=== PATIENT | male | born 1975 ===

== ENCOUNTER 2020-03-14 07:30 | Inpatient (IN) | payer OTHER ==
[~2020-03-14 07:30] MED LIST: CEFAZOLIN 2 GM/D5W RTU 2 GM/50 ML RTUPB IV ONE; CEFAZOLIN 2 GM/D5W RTU 2 GM/50 ML RTUPB IV PRN
--- NOTE | 2020-03-14 08:17 | RADIOLOGY REPORT (SQ) ---
EXAM DESCRIPTION: CHEST SINGLE VIEW IMAGES COMPLETED DATE/TIME: 03/14/2020 7:51 am REASON FOR STUDY: preop COMPARISON: None. EXAM PARAMETERS: NUMBER OF VIEWS: One view. TECHNIQUE: Single frontal radiographic view of the chest acquired. RADIATION DOSE: NA LIMITATIONS: None. FINDINGS: LUNGS AND PLEURA: No opacities, masses or pneumothorax. No pleural effusion. MEDIASTINUM AND HILAR STRUCTURES: No masses. Contour normal. HEART AND VASCULAR STRUCTURES: Heart normal in size. Normal vasculature. BONES: No acute findings. HARDWARE: None in the chest. OTHER: No other significant finding. IMPRESSION: NO ACUTE RADIOGRAPHIC FINDING IN THE CHEST. TECHNICAL DOCUMENTATION: JOB ID: [id number] 2010 [employer]- All Rights Reserved Reading location - IP/workstation name: [email or web address]
[2020-03-14 08:25] LABS: APPEARANCE,URINE SLIGHTLY-CLOUDY; BILIRUBIN,URINE NEGATIVE (NEGATIVE); COLOR,URINE YELLOW; GLUCOSE, URINE NEGATIVE (NEGATIVE); KETONES,URINE NEGATIVE (NEGATIVE); LEUKOCYTE ESTERASE,URINE NEGATIVE (NEGATIVE); NITRITE,URINE NEGATIVE (NEGATIVE); PROTEIN,URINE NEGATIVE (NEGATIVE); URINE SPECIFIC GRAVITY 1.021; UROBILINOGEN,URINE NEGATIVE mg/dL (<2.0)
[2020-03-14 08:34] LABS: URINE AMPHETAMINES SCREEN NEGATIVE; URINE BARBITURATES SCREEN NEGATIVE; URINE BENZODIAZEPINES SCREEN NEGATIVE; URINE COCAINE SCREEN NEGATIVE; URINE MARIJUANA (THC) SCREEN NEGATIVE; URINE METHADONE SCREEN NEGATIVE; URINE PHENCYCLIDINE SCREEN NEGATIVE
[2020-03-14] MEDS ORDERED: SUCCINYLCHOLINE CHLORIDE INJ 200 MG/10 ML VIAL ONE (08:34)
[2020-03-14] MEDS ORDERED: METOCLOPRAMIDE HCL INJ/PF 10 MG/2 ML SDV ONE (08:34)
[2020-03-14] MEDS ORDERED: DEXAMETHASONE SOD PHOSPHATE INJ 4 MG/1 ML VIAL ONE (08:34)
[2020-03-14] MEDS ORDERED: ONDANSETRON HCL INJ/PF 4 MG/2 ML SDV ONE (08:34)
[2020-03-14] MEDS ORDERED: ROCURONIUM BROMIDE INJ 50 MG/5 ML VIAL IV ONE (08:34)
[2020-03-14 08:55] LABS: ABSOLUTE BASOPHILS # (AUTO) 0.1 10^3/uL (0.0-0.2); ABSOLUTE EOSINOPHILS # (AUTO) 0.2 10^3/uL (0.0-0.6); ABSOLUTE LYMPHOCYTES (AUTO) 1.7 10^3/uL (0.5-4.7); ABSOLUTE MONOCYTES (AUTO) 0.8 10^3/uL (0.1-1.4); ABSOLUTE NEUT (AUTO) 4.4 10^3/uL (1.7-8.2); BASOPHILS % (AUTO) 1.3 % (0-2); EOSINOPHILS % (AUTO) 3.4 % (0-6); HEMATOCRIT 42.6 % (37.9-51.0); HEMOGLOBIN 14.4 g/dL (13.5-17.0); LYMPHOCYTES % (AUTO) 23.9 % (13-45); MEAN CORPUSCULAR HEMOGLOBIN 28.1 pg (27.0-33.4); MEAN CORPUSCULAR HGB CONC 33.9 g/dL (32.0-36.0); MEAN CORPUSCULAR VOLUME 83 fl (80-97); MONOCYTES % (AUTO) 10.7 % (3-13); PLATELET COUNT 218 10^3/uL (150-450); RED BLOOD COUNT 5.14 10^6/uL (4.35-5.55); RED CELL DISTRIBUTION WIDTH 13.6 % (11.5-14.0); SEGMENTED NEUTROPHILS % (AUTO) 60.7 % (42-78); TOTAL CELLS COUNTED % (AUTO) 100 %; WHITE BLOOD COUNT 7.3 10^3/uL (4.0-10.5)
[2020-03-14 09:16] LABS: ANION GAP 10 (5-19); BLOOD UREA NITROGEN 16 mg/dL (7-20); CALCIUM 9.6 mg/dL (8.4-10.2); CARBON DIOXIDE 22 mmol/L (22-30); CHLORIDE 106 mmol/L (98-107); GLUCOSE 95 mg/dL (75-110); POTASSIUM 4.4 mmol/L (3.6-5.0)
[2020-03-14] MEDS ORDERED: FENTANYL CITRATE INJ/PF 250 MCG/5 ML AMPULE ONE (11:28)
[2020-03-14] MEDS ORDERED: KETAMINE HCL INJ 500 MG/10 ML VIAL ONE (11:28)
[2020-03-14] MEDS ORDERED: MIDAZOLAM 2 MG/2 ML INJ ONE (11:28)
[2020-03-14] MEDS ORDERED: PROPOFOL 0 MG/0 ML INFUS..BTL IV ONE (11:29)
[2020-03-14] MEDS ORDERED: PROPOFOL INJ 200 MG/20 ML VIAL IV ONE (11:29)
[2020-03-14] MEDS ORDERED: LIDOCAINE 2% INJ-PF (100 MG/5 ML) SYRINGE ONE (11:29)
[2020-03-14] MEDS ORDERED: HEPARIN SOD (PORCINE) 1,000 UNIT/ML 10 ML VIAL ONE (11:31)
[2020-03-14] MEDS ORDERED: MINERAL OIL (STERILE) 10 ML VIAL ONE (11:31)
[2020-03-14] MEDS ORDERED: BUPIVACAINE HCL 0.5 % INJ/PF 30 ML SDV ONE (11:31)
[2020-03-14] MEDS ORDERED: BACITRACIN INJ 50,000 UNIT VIAL ONE (11:32)
[2020-03-14] MEDS ORDERED: BUPIVACAINE INJ/PF LIPOSOME/PF 266 MG/20 ML SDV ONE ×2 (11:32→14:09)
[2020-03-14] MEDS ORDERED: FENTANYL CITRATE INJ/PF 100 MCG/2 ML AMPUL IV PRN ×3 (13:10)
[2020-03-14] MEDS ORDERED: PROMETHAZINE HCL INJ 25 MG/1 ML VIAL IV PRN ×2 (13:10)
[2020-03-14] MEDS ORDERED: DIPHENHYDRAMINE HCL 50 MG/ML VIAL IV PRN ×2 (13:10→15:02)
[2020-03-14] MEDS ORDERED: MEPERIDINE HCL/PF INJ 25 MG/1 ML DISP.SYRIN IV PRN (13:10)
[2020-03-14] MEDS ORDERED: MORPHINE SULFATE 10 MG/ML INJ IV PRN ×2 (13:10→15:02)
[2020-03-14] MEDS ORDERED: FENTANYL CITRATE INJ/PF 100 MCG/2 ML AMPUL ONE (13:50)
[2020-03-14] MEDS ORDERED: HYDROMORPHONE HCL INJ/PF 2 MG/ML AMPULE ONE (13:50)
[2020-03-14] MEDS ORDERED: PROPOFOL 1,000 MG/100 ML INFUS..BTL IV ONE (13:50)
--- NOTE | 2020-03-14 14:55 | Operative Report ---
Operative Report DATE OF SURGERY: 03/14/20 PREOPERATIVE DIAGNOSIS: L5-S1 spondylolisthesis. L5-S1 instability. L5-S1 nicole nosis. L5-S1 radiculitis. Low back pain POSTOPERATIVE DIAGNOSIS: L5-S1 spondylolisthesis. L5-S1 instability. L5-S1 stenosis. L5-S1 radiculitis. Low back pain. Status post L5-S1 anterior lateral interbody fusion robotically assisted and L5-S1 posterior fusion and instrumentation robotically assisted left iliac crest aspiration through a separate incision for bone marrow aspirate consistent concentration as well as allografting and into the interbody space OPERATION: L5-S1 anterior lateral interbody fusion robotically assisted and L5- S1 posterior fusion and instrumentation robotically assisted left iliac crest aspiration through a separate incision for bone marrow aspirate consistent concentration as well as allografting and into the interbody space SURGEON: MARTI ALARCON 1ST RAILWAY SWITCHMAN: [employer] HUFFMAN ANESTHESIA: GA COMPLICATIONS: None ESTIMATED BLOOD LOSS: 100 cc PROCEDURE: Patient is brought into the room placed under general anesthesia received 2 g of Ancef within 1 hour of cut time was placed on the Coleman table medial epicondyles and axillary areas are well-padded. Neuro monitoring leads for SSEP and cranial motor testing are placed on the patient as well as a Bishop catheter is placed preoperatively. After appropriate surgical timeout the [employer] robot is utilized and on the right posterior superior iliac spine a pin is placed and attached to the robot. After obtaining registration imaging in the AP and oblique position and verification 6.5 x 40 mm screws x2 at L5 and 6.5 x 40 mm screws x2 at S1 screws are inserted using portal incisions on the ri ght and the left at L5 and S1 bilaterally. Left iliac crest is aspirated at 2 different sites total of 50 cc of bone marrow aspirate are obtained and concentrated to be used an interbody spacer with the allograft. Attention was then paid to the left sided anterior lateral portal for entry into the disc space which is carried out under navigation guidance upon verification also with x-rays and then stimulation thresholds greater than 17 mA. Upon inserting the portal into the disc space at L5-S1 fluoroscopy was used to verify the position as it did also to verify the screws position. Endplate irma and curettes and brushes are used to carry out a complete discectomy then the verify balloon is inserted to verify good contact with the endplates. Then the appropriate size mesh spacer is introduced into the interbody. The mesh spacer is soaked in bone marrow aspirate concentrate and is filled with bone graft showing good correction and good containment within the disc space at L5-S1. Upon neuro monitoring testing and cranial motor testing found to be stable then the portal is removed anterior laterally and attention is then paid to the placement of the rods upon using the caliper device the appropriate length rods were determined to be 40 mm rods on the right and on the left those are passed down and locked into position and final tightened. Then the tabs are removed and the portals are irrigated with copious amounts of irrigation and the posterior superior iliac spine pin connected to the robot is removed as well and the deep and superficial tissues were infiltrated with 1.3% Exparel 20 cc mixed with 20 cc of 0.5% bupivacaine plain. The portals are closed using 2-0 Vicryl and then Dermabond and Steri-Strips then 4 x 4's were used to cover the wounds on the right and the left and dressed with coverall tape. Please note that this procedure could not be done without the assistance of Palmer Bhakta working to assist with the placement of the screws positioning of the robot carrying out the aspiration through the left side iliac crest aspiration please also note that the iliac crest aspiration is carried out on the left side through a separate incision. Palmer Huffman was instrumental throughout this whole process and I could not have done this procedure without his assistance as mentioned above.
[2020-03-14] MEDS ORDERED: ACETAMINOPHEN SOLN 325 MG/10.15 ML UDCUP PO PRN (15:02)
[2020-03-14] MEDS ORDERED: PROMETHAZINE HCL 25 MG TABLET PO PRN (15:02)
[2020-03-14] MEDS ORDERED: ACETAMINOPHEN 325 MG TABLET PO PRN (15:02)
[2020-03-14] MEDS ORDERED: DIAZEPAM 5 MG TABLET PO PRN (15:02)
[2020-03-14] MEDS ORDERED: RINGERS SOLUTION,LACTATED 1,000 ML IV PRN (15:02)
[2020-03-14] MEDS ORDERED: PROMETHAZINE HCL INJ 25 MG/1 ML VIAL IM PRN (15:02)
[2020-03-14] MEDS ORDERED: DIPHENHYDRAMINE HCL 25 MG CAPSULE PO PRN (15:02)
[2020-03-14] MEDS ORDERED: ACETAMINOPHEN 650 MG SUPP.RECT PR PRN (15:02)
[2020-03-14] MEDS ORDERED: ONDANSETRON HCL INJ/PF 4 MG/2 ML SDV IV PRN (15:02)
[2020-03-14] MEDS ORDERED: DOXEPIN HCL 10 MG CAPSULE PO SCH ×2 (15:15→22:00)
[2020-03-14] MEDS ORDERED: METHOCARBAMOL INJ/PF 1000 MG/10 ML SDV ONE (15:26)
--- NOTE | 2020-03-14 15:52 | RADIOLOGY REPORT (SQ) ---
EXAM DESCRIPTION: NO CHG FLUORO; L SPINE 2 VIEWS IMAGES COMPLETED DATE/TIME: 03/14/2020 3:11 pm REASON FOR STUDY: LUMBAR FUSION ASSISTED WITH FLUORO IN OR COMPARISON: None. FLUOROSCOPY TIME: 1.6 minutes 3 Images saved to PACS LIMITATIONS: None. PROCEDURE: Lumbar fusion assisted with fluoro. FINDINGS: Images from fluoro document placement of posterior rods at L5-S1 with screws through the p edicles. IMPRESSION: Lumbar fusion assisted with fluoro. Refer to operative note for further information. COMMENT: PQRS 6045F: Fluoroscopy time of the procedure is documented in the report. TECHNICAL DOCUMENTATION: JOB ID: [id number] 2010 [employer]- All Rights Reserved Reading location - IP/workstation name: [email or web address]
--- NOTE | 2020-03-14 15:52 | RADIOLOGY REPORT (SQ) ---
EXAM DESCRIPTION: NO CHG FLUORO; L SPINE 2 VIEWS IMAGES COMPLETED DATE/TIME: 03/14/2020 3:11 pm REASON FOR STUDY: LUMBAR FUSION ASSISTED WITH FLUORO IN OR COMPARISON: None. FLUOROSCOPY TIME: 1.6 minutes 3 Images saved to PACS LIMITATIONS: None. PROCEDURE: Lumbar fusion assisted with fluoro. FINDINGS: Images from fluoro document placement of posterior rods at L5-S1 with screws through the p edicles. IMPRESSION: Lumbar fusion assisted with fluoro. Refer to operative note for further information. COMMENT: PQRS 6045F: Fluoroscopy time of the procedure is documented in the report. TECHNICAL DOCUMENTATION: JOB ID: [id number] 2010 [employer]- All Rights Reserved Reading location - IP/workstation name: [email or web address]
[2020-03-14] MEDS: METHOCARBAMOL 750 MG TABLET PO PRN (17:23)
[2020-03-14] MEDS: SENNOSIDES/DOCUSATE 8.6-50 MG 1 EACH TABLET PO SCH (17:24)
[2020-03-14] MEDS: OXYCODONE HCL IR 5 MG TABLET PO PRN (20:39)
[2020-03-14] MEDS ORDERED: CEFAZOLIN 2 GM/D5W RTU 2 GM/50 ML RTUPB IV SCH (22:00)
[2020-03-14] MEDS: CEFAZOLIN SODIUM 2 GM in DEXTROSE 5%-WATER 100 ML IV SCH (22:17)
--- NOTE | 2020-03-14 23:32 | EKG REPORT ---
SEVERITY:- NORMAL ECG - SINUS RHYTHM : Confirmed by: Maricarmen Valencia 14-Mar-2020 23:31:50
[2020-03-15] MEDS: METHOCARBAMOL 750 MG TABLET PO PRN (02:30)
[2020-03-15] MEDS: CEFAZOLIN SODIUM 2 GM in DEXTROSE 5%-WATER 100 ML IV SCH (06:15)
--- NOTE | 2020-03-15 07:52 | PDOC PROGRESS REPORT ---
Subjective Date:: 03/15/20 Subjective:: Patient doing well this morning. Reports some weakness with ambulation. Otherw ise pain is well controlled this morning. He is voiding well. Reason For Visit: LUMBAR SPONDYLOLISTHESIS, LUMBAR RADICULOPATHY, Physical Exam Vital Signs: Temp Pulse Resp BP Pulse Ox 97.5 F 96 18 146/81 H 96 03/14/20 23:24 03/14/20 23:24 03/14/20 23:24 03/14/20 23:24 03/14/20 23:24 Intake & Output 03/14/20 03/15/20 03/16/20 06:59 06:59 06:59 Intake Total 3560 Output Total 1480 Balance 2080 Weight 100 kg 100 kg Physical Exam: No acute distress, alert and oriented x3 Bilateral lower extremity -Pulses 2+ distally -Compartments soft -Sensation grossly intact to L3-4-5 S1 -Motor grossly intact to EHL TA gastroc and quad Posterior wound clean dry and intact Results Laboratory Results: 03/14/20 08:20 03/14/20 08:20 03/14/20 03/14/20 03/14/20 08:00 08:20 08:20 WBC 7.3 RBC 5.14 Hgb 14.4 Hct 42.6 MCV 83 MCH 28.1 MCHC 33.9 RDW 13.6 Plt Count 218 Seg Neutrophils % 60.7 Sodium 138.1 Potassium 4.4 Chloride 106 Carbon Dioxide 22 Anion Gap 10 BUN 16 Creatinine 0.93 Est GFR ( Amer) > 60 Glucose 95 Calcium 9.6 Urine Color YELLOW Urine Appearance SLIGHTLY-CLOUDY Urine pH 5.0 Ur Specific [place] 1.021 Urine Protein NEGATIVE Urine Glucose (UA) NEGATIVE Urine Ketones NEGATIVE Urine Blood NEGATIVE Urine Nitrite NEGATIVE Ur Leukocyte Esterase NEGATIVE Urine WBC (Auto) 1 Urine RBC (Auto) 1 Blood Type Antibody Screen 03/14/20 08:20 WBC RBC Hgb Hct MCV MCH MCHC RDW Plt Count Seg Neutrophils % Sodium Potassium Chloride Carbon Dioxide Anion Gap BUN Creatinine Est GFR ( Amer) Glucose Calcium Urine Color Urine Appearance Urine pH Ur Specific [place] Urine Protein Urine Glucose (UA) Urine Ketones Urine Blood Urine Nitrite Ur Leukocyte Esterase Urine WBC (Auto) Urine RBC (Auto) Blood Type A POSITIVE Antibody Screen NEGATIVE Impressions: Fluoroscopy 03/14/20 00:00 IMPRESSION: Lumbar fusion assisted with fluoro. Refer to operative note for further information. Lumbar Spine X-Ray 03/14/20 00:00 IMPRESSION: Lumbar fusion assisted with fluoro. Refer to operative note for further information. Chest X-Ray 03/14/20 07:42 IMPRESSION: NO ACUTE RADIOGRAPHIC FINDING IN THE CHEST. Assessment & Plan - Diagnosis (1) S/P lumbar fusion Is this a current diagnosis for this admission?: Yes Plan: Weightbearing as tolerated Plan for discharge home today Complete perioperative antibiotics while in house Continue DVT prophylaxis as prescribed by Dr. Linares - Time Time Spent with patient: Less than 15 minutes
[2020-03-15] MEDS: OXYCODONE HCL IR 5 MG TABLET PO PRN (07:55)
[2020-03-15] MEDS ORDERED: INFLUENZA QUAD (6MOS+) 2020-21 VAC 0.5 ML SYR IM ONE (08:00)
[2020-03-15 09:02] VITALS: BP 127/87
[2020-03-15] MEDS: SENNOSIDES/DOCUSATE 8.6-50 MG 1 EACH TABLET PO SCH (09:17)
[2020-03-15] MEDS ORDERED: PAROXETINE HCL 40 MG PO SCH (10:00)
[2020-03-15] MEDS ORDERED: PAROXETINE HCL 20 MG TABLET PO SCH (10:00)
--- NOTE | 2020-03-15 13:32 | PDOC DISCHARGE SUMMARY ---
Impression - Admit/DC Date/PCP Admission Date/Primary Care Provider: 03/14/20 07:35 YEMI WHITLOCK MD Discharge Date: 03/15/20 - Additional Information Resuscitation Status: Full Code Discharge Diet: Regular Discharge Activity: No Driving, No Lifting/Push/Pulling, No tub bath, Walk Frequently - up every hour to encourage blood flow return to the heart. Not ambulation for exercise, but just to get up, Other - No lifting greater than half gallon of milk Referrals: YEMI WHITLOCK MD [Primary Care Provider] - 03/23/20 10:00 am Home Medications: Doxepin HCl [S[place]qu[place] 10 Mg Capsule] 30 mg PO ASDIR PRN 03/13/20 Paroxetine HCl 40 mg PO ASDIR PRN 03/13/20 History of Present Illiness History of Present Illness: ABDIRAHMAN WALL is a 44 year old male who was admitted for adequate level of care folowing major surgery after failing conservative measures Hospital Course Hospital Course: L5-S1 robotically assisted anterolateral fusion with posterior fusion with instrumentation and interbody spacer carried out as planned. Pt admitted to joint and spine floor post op day 0. Pt did have mild pain control issues in PACU that improved once on the floor. Pain adequately controlled with oxycodne, methocarbamol and tylenol. Pt discharged on same regimen. Pt dishcaged to home in good condition on postop day #1. Disharge instruction and spinal precautions reviewed with patent, and patient displayed understanding. Pt to followup with Fernando Linares in 7-14 days with pre scheduled appoitment. Pt will begin with PT 2-3 weeks post op on an outpatient basis. Physical Exam Vital Signs: Temp Pulse Resp BP Pulse Ox 36.4 C 96 18 127/87 H 96 03/15/20 09:00 03/15/20 09:00 03/15/20 09:00 03/15/20 09:00 03/15/20 09:00 Intake & Output 03/14/20 03/15/20 03/16/20 06:59 06:59 06:59 Intake Total 3560 Output Total 1480 Balance 2080 Weight 100 kg 100 kg Exam: Please see physical exam from Dr. Philip's progres note Results Laboratory Results: WBC 7.3 10^3/uL (4.0-10.5) 03/14/20 08:20 RBC 5.14 10^6/uL (4.35-5.55) 03/14/20 08:20 Hgb 14.4 g/dL (13.5-17.0) 03/14/20 08:20 Hct 42.6 % (37.9-51.0) 03/14/20 08:20 MCV 83 fl (80-97) 03/14/20 08:20 MCH 28.1 pg (27.0-33.4) 03/14/20 08:20 MCHC 33.9 g/dL (32.0-36.0) 03/14/20 08:20 RDW 13.6 % (11.5-14.0) 03/14/20 08:20 Plt Count 218 10^3/uL (150-450) 03/14/20 08:20 Lymph % (Auto) 23.9 % (13-45) 03/14/20 08:20 Bowman % (Auto) 10.7 % (3-13) 03/14/20 08:20 Eos % (Auto) 3.4 % (0-6) 03/14/20 08:20 Baso % (Auto) 1.3 % (0-2) 03/14/20 08:20 Absolute Neuts (auto) 4.4 10^3/uL (1.7-8.2) 03/14/20 08:20 Absolute Lymphs (auto) 1.7 10^3/uL (0.5-4.7) 03/14/20 08:20 Absolute Monos (auto) 0.8 10^3/uL (0.1-1.4) 03/14/20 08:20 Absolute Eos (auto) 0.2 10^3/uL (0.0-0.6) 03/14/20 08:20 Absolute Basos (auto) 0.1 10^3/uL (0.0-0.2) 03/14/20 08:20 Seg Neutrophils % 60.7 % (42-78) 03/14/20 08:20 Sodium 138.1 mmol/L (137-145) 03/14/20 08:20 Potassium 4.4 mmol/L (3.6-5.0) 03/14/20 08:20 Chloride 106 mmol/L (98-107) 03/14/20 08:20 Carbon Dioxide 22 mmol/L (22-30) 03/14/20 08:20 Anion Gap 10 (5-19) 03/14/20 08:20 BUN 16 mg/dL (7-20) 03/14/20 08:20 Creatinine 0.93 mg/dL (0.52-1.25) 03/14/20 08:20 Est GFR ( Amer) > 60 (>60) 03/14/20 08:20 Est GFR (MDRD) Non-Af > 60 (>60) 03/14/20 08:20 Glucose 95 mg/dL (75-110) 03/14/20 08:20 Calcium 9.6 mg/dL (8.4-10.2) 03/14/20 08:20 Urine Color YELLOW 03/14/20 08:00 Urine Appearance SLIGHTLY-CLOUDY 03/14/20 08:00 Urine pH 5.0 (5.0-9.0) 03/14/20 08:00 Ur Specific [place] 1.021 03/14/20 08:00 Urine Protein NEGATIVE mg/dL (NEGATIVE) 03/14/20 08:00 Urine Glucose (UA) NEGATIVE mg/dL (NEGATIVE) 03/14/20 08:00 Urine Ketones NEGATIVE mg/dL (NEGATIVE) 03/14/20 08:00 Urine Blood NEGATIVE (NEGATIVE) 03/14/20 08:00 Urine Nitrite NEGATIVE (NEGATIVE) 03/14/20 08:00 Urine Bilirubin NEGATIVE (NEGATIVE) 03/14/20 08:00 Urine Urobilinogen NEGATIVE mg/dL (<2.0) 03/14/20 08:00 Ur Leukocyte Esterase NEGATIVE (NEGATIVE) 03/14/20 08:00 Urine WBC (Auto) 1 /HPF 03/14/20 08:00 Urine RBC (Auto) 1 /HPF 03/14/20 08:00 U Hyaline Cast (Auto) 1 /LPF 03/14/20 08:00 Urine Mucus (Auto) MANY /LPF 03/14/20 08:00 Urine Ascorbic Acid NEGATIVE (NEGATIVE) 03/14/20 08:00 Urine Opiates Screen NEGATIVE 03/14/20 08:00 Urine Methadone Screen NEGATIVE 03/14/20 08:00 Ur Barbiturates Screen NEGATIVE 03/14/20 08:00 Ur Phencyclidine Scrn NEGATIVE 03/14/20 08:00 Ur Amphetamines Screen NEGATIVE 03/14/20 08:00 U Benzodiazepines Scrn NEGATIVE 03/14/20 08:00 Urine Cocaine Screen NEGATIVE 03/14/20 08:00 U Marijuana (THC) Screen NEGATIVE 03/14/20 08:00 Influenza A (RT-PCR) NEGATIVE (NEGATIVE) 03/14/20 07:59 Influenza B (RT-PCR) NEGATIVE (NEGATIVE) 03/14/20 07:59 RSV (RT-PCR) NEGATIVE (NEGATIVE) 03/14/20 07:59 SARS-CoV-2 Rap RNA(RT-PCR) NEGATIVE (NEGATIVE) 03/14/20 07:59 Blood Type A POSITIVE 03/14/20 08:20 Antibody Screen NEGATIVE 03/14/20 08:20 Impressions: Fluoroscopy 03/14/20 00:00 IMPRESSION: Lumbar fusion assisted with fluoro. Refer to operative note for further information. Lumbar Spine X-Ray 03/14/20 00:00 IMPRESSION: Lumbar fusion assisted with fluoro. Refer to operative note for further information. Chest X-Ray 03/14/20 07:42 IMPRESSION: NO ACUTE RADIOGRAPHIC FINDING IN THE CHEST. Plan Time Spent: Less than 30 Minutes Stroke Is this a Stroke Patient?: No Acute Heart Failure Is this a Heart Failure Patient?: No
== END 2020-03-15 12:16 | disposition home or self-care (01) | DRG 460 ==
LOC: INOR 07:35 → 4W 16:33
PROVIDERS: ADMIT Orthopaedic Surgery; ATTEND Orthopaedic Surgery
PROC: 0SG33AJ Fusion of Lumbosacral Joint with Interbody Fusion Device, Posterior Approach, Anterior Column, Percutaneous Approach (ICD-10-PCS; 2020-03-14)
PROC: 0ST40ZZ Resection of Lumbosacral Disc, Open Approach (ICD-10-PCS; 2020-03-14)
PROC: 07DR3ZZ Extraction of Iliac Bone Marrow, Percutaneous Approach (ICD-10-PCS; 2020-03-14)
PROC: 8E0W3CZ Robotic Assisted Procedure of Trunk Region, Percutaneous Approach (ICD-10-PCS; 2020-03-14)
PROC: 4A1134G Monitoring of Peripheral Nervous Electrical Activity, Intraoperative, Percutaneous Approach (ICD-10-PCS; 2020-03-14)
PROC: 0SG Lower Joints, Fusion (ICD-10-PCS; principal; 2020-03-14 10:30)
DX: M47.27 Other spondylosis with radiculopathy, lumbosacral region (principal); M51.17 Intervertebral disc disorders with radiculopathy, lumbosacral region; M48.07 Spinal stenosis, lumbosacral region; F32.9 Major depressive disorder, single episode, unspecified; Z20.822 Contact with and (suspected) exposure to COVID-19
CPT/HCPCS: 00630; 36415; 71045; 72100; 80048; 80307; 81001; 85025; 86850; 86900; 86901; 87070; 93005; 93010; 94799; 0241U; A4649; C1713; C1781; C9290; C9803; J0330; J0690; J1100; J1170; J1644; J2001; J2250; J2405; J2704; J2765; J2800; J3010; J3490; J7060; J7120; Q9966